=== PATIENT | female | born 1985 | race Hispanic/Latino ===

== ENCOUNTER 2018-06-03 05:53 | Emergency (ER) | payer MEDICAID, OTHER ==
[~2018-06-03 05:53] MED LIST: PREN1TAB89 PO
[2018-06-03 06:35] LABS: BASOPHILS % (AUTO) 0.6 % (0.0-5.0); EOSINOPHILS % (AUTO) 0.9 % (0.0-8.0); HEMATOCRIT 40.2 % (36-48); LYMPHOCYTES % (AUTO) 16.8 % (21.0-51.0); MEAN CORPUSCULAR HEMOGLOBIN 29.5 pg (27.0-33.0); MEAN CORPUSCULAR HGB CONC 33.9 g/dL (32.0-36.0); MEAN CORPUSCULAR VOLUME 87.2 fL (79-99); MONOCYTES % (AUTO) 6.8 % (3.0-13.0); NEUTROPHILS % (AUTO) 74.9 % (40.0-77.0); NUCLEATED RED BLOOD CELLS 0.1 % (0.0-0.19); PLATELET COUNT (AUTO) 391 K/uL (130-400); RED BLOOD CELL COUNT(AUTO) 4.61 MIL/uL (4.00-5.50); RED CELL DISTRIBUTION WIDTH 13.6 % (11.0-15.5); WHITE BLOOD COUNT (AUTO) 11.1 K/uL (4.8-10.8)
[2018-06-03] MEDS ORDERED: ACETAMINOPHEN EXTRA STRENGTH 500 MG TABLET ONE (06:37)
[2018-06-03] MEDS ORDERED: ONDANSETRON HCL 4 MG/2 ML VIAL ONE (06:37)
[2018-06-03 06:39] LABS: CREATININE 0.8 mg/dL (0.5-1.5); POTASSIUM 3.8 mmol/L (3.5-5.1)
[2018-06-03 06:48] LABS: APPEARANCE,URINE Clear (CLEAR); BILIRUBIN,URINE Negative (NEGATIVE); COLOR,URINE Yellow (YELLOW); GLUCOSE, URINE (UA) Negative (NEGATIVE); KETONES,URINE Trace mg/dL (NEGATIVE); LEUKOCYTE ESTERASE ,URINE Small (NEGATIVE); NITRATE,URINE Positive (NEGATIVE); OCCULT BLOOD,URINE Nonhemolyzed Trace (NEGATIVE); PROTEIN,URINE Negative (NEGATIVE)
[2018-06-03 06:54] LABS: ALBUMIN 3.9 g/dL (3.5-5.0); BILIRUBIN,TOTAL 0.4 mg/dL (0.2-1.0); THYROID STIMULATING HORMONE 4.8 uIU/mL (0.36-3.74); TOTAL PROTEIN, SERUM 7.9 g/dL (6.0-8.3)
[2018-06-03 07:08] LABS: HCG,QUAL RESULT NEGATIVE (NEGATIVE)
[2018-06-03] MEDS ORDERED: ORPHENADRINE CITRATE 30 MG/ML ML ONE (07:17)
[2018-06-03 07:32] LABS: BACTERIA,URINE Moderate /HPF (None Seen); CALCIUM OXALATE CRYSTALS,UR Moderate /LPF (None Seen); RBC,URINE 0-1 /HPF (0-1)
== END 2018-06-03 08:32 | disposition home or self-care (01) ==
LOC: EDH 05:53
DX: G43.009 Migraine without aura, not intractable, without status migrainosus (principal); R94.6 Abnormal results of thyroid function studies
CPT/HCPCS: 36415; 80053; 81001; 81025; 84443; 85025; 87077; 87088; 87186; 96374; 96375; 99283; J2360; J2405

== ENCOUNTER 2024-06-22 16:54 | Emergency (ER) | payer BC, OTHER ==
[~2024-06-22] VITALS: Ht 162.6 cm; Wt 104.3 kg
[2024-06-22 19:09] LABS: RAPID GROUP A STREP negative (NEGATIVE)
[2024-06-22 19:19] LABS: COVID19 (SARS ANTIGEN RAPID) PRESUMPTIVE NEGATIVE (NEGATIVE)
[2024-06-22 19:25] LABS: INFLUENZA TYPE A Negative For Type A (NEGATIVE); INFLUENZA TYPE B Negative For Type B (NEGATIVE)
[2024-06-22] MEDS: acetaMINOPHEN 500 MG TABLET PO ONE (19:45)
--- NOTE | 2024-06-22 19:47 | ERN ---
ED Note History of Present Illness Stated Complaint: FLU LIKE SYMPTOMS,RASH ALL OVER BODY Chief Complaint: Multiple Complaints Time Seen by MD: 17:19 Time Seen by Midlevel: 17:19 Dictation: The patient is a 38-year-old female with no past medical history who presents to the emergency department with multiple complaints. Patient reports a rash three days ago that was itching. Took Benadryl and since rash resolved. Reports body aches, fevers. Denies any nausea, vomiting, diarrhea, abdominal pain, urinary discomfort. Allergies: Coded Allergies: No Known Drug Allergies (Verified Allergy, 07/09/12) Home Meds Reported Medications Vit W-Ca,Fe,FA(<1 mg) ( Vitamins) 1 Each Tablet, 1 EACH PO D AILYDINNER, TAB 03/18/17 Past Medical History Past Medical History: No Pertinent History Surgical History: None LMP: Jun 12, 2024 RN Note Reviewed/Agreed w/PFSH: Yes Review of System Dictation Constitutional: Negative for ,chills, and weight loss is a for fever Eyes: Negative for injury, pain,redness, and discharge ENT: Negative for injury,pain or swelling Cardiovascular: Negative for chest pain, palpitations, and edema Respiratory: Negative for shortness of breath, cough, and wheezing, Abdomen/GI: Negative for abdominal pain, nausea, vomiting, diarrhea, and constipation Back: Negative for injury and pain : Negative for injury, bleeding and discharge MS/Extremity: Negative for injury and deformity Skin: Negative for rash, and discoloration Neuro: Negative for headache, weakness, numbness, tingling, and seizure positive for body aches Psych: Negative for suicide ideation, homicidal ideation, and hallucinations Initial Vital Sign VS Vital Signs Date Time Temp Pulse Resp B/P (MAP) Pulse Ox O2 Delivery O2 Flow Rate FiO2 06/22/24 17:22 98.1 81 16 135/75 98 Room Air 0 06/22/24 18:40 21 Physical Exam Dictation Vital Signs reviewed General Appearance: Alert, oriented x 3, no acute distress, well developed, nourished. Head and Face: non-traumatic. Eyes: PERRL, pink conjunctivas, eyelid no trauma, anterior chamber with arcus senilis. Ears: Pinnas intact and no signs of trauma or erythema ear canals clear and no discharge TM no erythema Nose: No discharge, no bleeding. Oropharynx: Mouth normal, tongue pink. pharynx clear,no erythema, tonsils no exudates, no abscesses noted, mucous membrane moist Neck: Supple, non-tender, no thyromegaly, no masses, no JVD, no bruits Breast:Deferred Chest:No tenderness, no crepitus, no paradoxical movement, no retractions Lungs:Clear, well-ventilated, symmetric, no rales, no wheezing, no rhonchi, no stridor, good breath sounds bilaterally Heart: Regular rate, regular rhythm, no murmur, no gallops Vascular: no peripheral edema, Abdomen: Soft, positive bowel sounds, nondistended, no guarding, nontender, no rebound, no masses no hepatomegaly, no splenomegaly, no Troncoso's sign, no hernias. Rectal: Deferred Genital: Deferred Neurological: Normal speech, motor function intact, sensory function intact Musculoskeletal: Neck nontender, full range of motion, back nontender, full range of motion, Extremities: nontender, full range of motion Skin: Color pink, dry, no turgor, no rash, no lacerations, no abrasions, no contusions. Lymphatic: Deferred Results (Laboratory/Radiology) Laboratory/Radiology Laboratory Tests Test 06/22/24 18:35 Influenza Type A Antigen Negative For Type A Influenza Type B Antigen Negative For Type B SARS-CoV-2 Antigen (Rapid) PRESUMPTIVE NEGATIVE Group A Streptococcus Rapid negative (NEGATIVE) Labs Reviewed?: Yes ED Course ED Course Orders Procedure Category Date Status Time Covid19 (Sars Antigen LAB 06/22/24 Complete Rapid) 18:28 Influenza Type A & B, LAB 06/22/24 Complete Rapid 18:28 Rapid (Group A Strep) LAB 06/22/24 Complete 18:28 Acetaminophen 500mg PHA 06/22/24 Complete Tab (Tylenol 500mg T 18:30 Current Medications Medications (Trade) Dose Ordered Sig/Edy Route PRN Reason Start Time Stop Time Status Last Admin Dose Admin Acetaminophen (TYLenol 500MG TAB) 1,000 mg ONCE ONCE PO 06/22/24 18:30 06/22/24 18:31 DC 06/22/24 19:45 Vital Signs Date Time Temp Pulse Resp B/P (MAP) Pulse Ox O2 Delivery O2 Flow Rate FiO2 06/22/24 18:40 98.2 80 16 130/70 98 Room Air* 0 21 06/22/24 17:22 98.1 81 16 135/75 98 Room Air 0 Medical Decision Making MDM The patient is a 38-year-old female with no past medical history who presents to the emergency department with multiple complaints. Patient reports a rash three days ago that was itching. Took Benadryl and since rash resolved. Reports body aches, fevers. Denies any nausea, vomiting, diarrhea, abdominal pain, urinary discomfort. Serology negative for flu, strep. Patient with no more rash. Nontoxic appearance. Nonfebrile in ER. Patients will be discharged to follow up with PCP. Differential diagnosis: Otitis media, viral illness, upper respiratory infection Need for hospitalization: Patient does not meet criteria for hospitalization. There are no social concerns with this patient. DX & DISP Disposition: Discharge Departure Impression: Primary Impression: Viral illness Additional Impression: Fever Condition: Stable Additional Instructions: FOLLOW-UP WITH PRIMARY CARE PROVIDER IN 1 TO 2 DAYS. TAKE MEDICATIONS DIRECTED HERE IN THE EMERGENCY ROOM. OKAY TO CONTINUE HOME MEDICATIONS UNLESS OTHERWISE DISCUSSED DURING YOUR VISIT IN THE EMERGENCY ROOM TODAY. RETURN TO YOUR NEAREST EMERGENCY ROOM IF SYMPTOMS WORSEN OR IF THERE IS NO IMPROVEMENT. CALL 911 IF YOU NEED IMMEDIATE ASSISTANCE. TAKE TYLENOL OR MOTRIN [id number] NEEDED AND IF NO CONTRAINDICATIONS ARE PRESENT. INCREASE ORAL HYDRATION. A WOUND CULTURE OR URINE CULTURE WAS ORDERED HERE IN THE EMERGENCY ROOM DEPARTMENT PLEASE FOLLOW-UP WITH PRIMARY CARE PROVIDER AND ADVISE THEM TO GET REPEAT PORTS FROM OUR FACILITY. IF YOU HAD ANY WALLY WRAP/SPLINTS THAT WERE APPLIED HERE, PLEASE DO NOT REMOVE THEM UNTIL YOU SEE YOUR PRIMARY CARE OR SPECIALTY. Referrals: LYNDON ADHIKARI MD (PCP) Time of Disposition: 19:51 I have reviewed the case, and I agree with, Diagnosis and Plan RAD[facility] WHITTEN [facility] Jun 22, 2024 19:47
[2024-06-22 20:00] VITALS: BP 128/68; PULSE 84; RESP 16; TEMP 98.1; O2SAT 98
[2024-06-22 20:05] VITALS: TEMP 97.6
== END 2024-06-22 20:05 | disposition home or self-care (01) ==
LOC: EDH 16:54
DX: B34.9 Viral infection, unspecified (principal); Z20.822 Contact with and (suspected) exposure to COVID-19; Z79.899 Other long term (current) drug therapy
CPT/HCPCS: 87426; 87804; 87880; 99283

== ENCOUNTER 2024-06-27 03:16 | Emergency (ER) | payer BC ==
[~2024-06-27] VITALS: Ht 160 cm; Wt 109.3 kg
--- NOTE | 2024-06-27 03:39 | ERN ---
General Chief Complaint: Upper Extremity Pain/Injury Stated Complaint: C/O NUMBNESS WITH PAIN TO RT ARM Time Seen by MD: 03:17 Source: patient History of Present Illness Initial Comments PATIENT IS A 38-YEAR-OLD FEMALE COMING IN TO BE EVALUATED FOR RIGHT UPPER EXTREMITY NUMBNESS AND TINGLING TO THE FINGERS WRIST. PATIENT STATES THAT THESE SYMPTOMS BEGAN EARLIER TODAY. Allergies: Coded Allergies: No Known Drug Allergies (Verified Allergy, 07/09/12) Home Meds Reported Medications Vit W-Ca,Fe,FA(<1 mg) ( Vitamins) 1 Each Tablet, 1 EACH PO DAILYDINNER, TAB 03/18/17 Past Medical History Past Medical History: No Pertinent History Past Surgical History: Female( History) LMP: Jun 17, 2024 ROS Dictation CONSTITUTIONAL: NO CHILLS, NO FEVER, NO WEAKNESS, NO DIAPHORESIS, NO MALAISE. HEAD/FACE: NO SIGNS OF TRAUMA. EENT: NO EYE PAIN, NO BLURRED VISION, NO TEARING, NO DOUBLE VISION, NO EAR PAIN, NO EAR DISCHARGE, NO NOSE PAIN, NO NASAL CONGESTION, NO THROAT PAIN, NO THROAT SWELLING, NO MOUTH PAIN. RESPIRATORY: NO COUGH, NO ORTHOPNEA, NO SOB, NO STRIDOR, NO WHEEZING. CARDIOVASCULAR: NO CHEST PAIN, NO EDEMA, NO PALPITATIONS, NO SYNCOPE. GASTROINTESTINAL/ABDOMINAL: NO ABDOMINAL PAIN, NO CONSTIPATION, NO DIARRHEA, NO NAUSEA, NO VOMITING. GENITOURINARY: NO ABNORMAL DISCHARGE, NO DYSURIA, NO FREQUENT URINATION, NO HEMATURIA. NO COMPLAINTS OF PAIN IN THE GENITALS. MUSCULOSKELETAL: NO BACK PAIN, NO GOUT, NO JOINT PAIN, NO JOINT SWELLING, NO MUSCLE PAIN, NO MUSCLE STIFFNESS, NO NECK PAIN. INTEGUMENTARY: NO CHANGE IN COLOR, NO CHANGE IN HAIR/NAILS, NO DRYNESS, NO LESION, NO LUMPS, NO RASH. NEUROLOGICAL/PSYCH: NO ANXIETY, NOT DEPRESSED, NO EMOTIONAL PROBLEM, NO HEADACHE, NUMBNESS, NO PRE-EXISTING DEFICIT, NO HISTORY OF SEIZURES, NO TREMORS, NO WEAKNESS. HEMATOLOGIC/LYMPHATIC: NOT ANEMIC, NO HISTORY OF BLOOD CLOTS, NO APPARENT BLEEDING, NO BRUISING, GLANDS NOT SWOLLEN. ALL SYSTEMS NEGATIVE, EXCEPT NOTED. Physical Exam Physical Exam Dictation VITAL SIGNS: REVIEWED. GENERAL APPEARANCE: ALERT, ORIENTED X3, NO ACUTE DISTRESS, OBESE. HEAD AND FACE: NON-TRAUMATIC. EYES: PERRL, PINK CONJUNCTIVAS, EYELID NO TRAUMA, ANTERIOR CHAMBER CLEAR. EARS: PINNAS INTACT AND NO SIGNS OF TRAUMA OR ERYTHEMA. EAR CANALS CLEAR AND NO DISCHARGE. TMS NO ERYTHEMA. NOSE: NO DISCHARGE, NO BLEEDING. OROPHARYNX: MOUTH NORMAL, TEETH NO CARIES, TONGUE PINK. PHARYNX CLEAR, NO ERYTHEMA. TONSILS NO EXUDATES, NO ABSCESSES NOTED. MUCOUS MEMBRANE MOIST. NECK: SUPPLE, NON-TENDER, NO THYROMEGALY, NO MASSES, NO JVD, NO BRUITS. BREAST: DEFERRED. CHEST: NO TENDERNESS, NO CREPITUS, NO PARADOXICAL MOVEMENT, NO RETRACTIONS. LUNGS: CLEAR, WELL-VENTILATED, SYMMETRIC, NO RALES, NO WHEEZING, NO RHONCHI, NO STRIDOR, GOOD BREATH SOUNDS BILATERALLY. HEART: REGULAR RATE, REGULAR RHYTHM, NO MURMUR, NO GALLOPS. VASCULAR: NO PERIPHERAL EDEMA. ABDOMEN: SOFT, POSITIVE BOWEL SOUNDS, NONDISTENDED, NO GUARDING, NONTENDER, NO REBOUND, NO MASSES NO HEPATOMEGALY, NO SPLENOMEGALY, NO MARQUEZ'S SIGN, NO HERNIAS. RECTAL: DEFERRED. GENITAL: DEFERRED. NEUROLOGICAL: NORMAL SPEECH, GROSS MOTOR FUNCTION INTACT, GROSS SENSORY FUNCTION INTACT. MUSCULOSKELETAL: NECK NONTENDER, FULL RANGE OF MOTION, BACK NONTENDER, FULL RANGE OF MOTION. EXTREMITIES: NONTENDER, FULL RANGE OF MOTION. RIGHT ULNAR NERVES TENDERNESS TO PALPATION, PRESSING ON THE NURSE STIMULATES THE NUMBNESS AND TINGLING. SKIN: COLOR PINK, DRY, NO TURGOR, NO RASH, NO LACERATIONS, NO ABRASIONS, NO C ONTUSIONS. LYMPHATICS: DEFERRED. Results Laboratory and Microbiology Lab and Micro Result Laboratory Tests Test 06/27/24 03:33 Urine HCG, Qualitative NEGATIVE (NEGATIVE) Labs Reviewed?: Yes MDM MDM: DIFFERENTIAL DIAGNOSIS: ULNAR NERVE ENTRAPMENT, NUMBNESS AND TINGLING, CARPAL TUNNEL SYNDROME, PATIENT IS A 38-YEAR-OLD FEMALE COMING IN TO BE EVALUATED FOR RIGHT UPPER EXTREMITY NUMBNESS AND TINGLING. ON PHYSICAL EXAM ULNAR NERVE FOSSA TENDERNESS TO PALPATION AND REPEATS THE SENSATION WANTS THE ULNAR NERVE IS TAPPED. CONSIS TENT WITH A NERVE ENTRAPMENT. PATIENT WILL BE DISCHARGED IN STABLE CONDITION WITH A DIAGNOSIS OF ULNAR NERVE ENTRAPMENT I ADVISED HER APPROPRIATE FOLLOW UP WITH PCP ANTI-INFLAMMATORIES WILL BE PROVIDED. ED Course Orders Procedure Category [facility] In Process 03:25 ,Urine Test LAB 06/27/24 Complete 03:25 Orphenadrine Citrate PHA 06/27/24 Complete (Norflex) 03:30 Ketorolac PHA 06/27/24 Complete Tromethamine 30mg/Ml 03:30 Current Medications Medications (Trade) Dose Ordered Sig/Edy Route PRN Reason Start Time Stop Time Status Last Admin Dose Admin Ketorolac Tromethamine (toRADol) 30 mg ONCE ONCE IM 06/27/24 03:30 06/27/24 03:31 DC Orphenadrine Citrate (Norflex) 60 mg ONCE ONCE IM 06/27/24 03:30 06/27/24 03:31 DC Vital Signs Date Time Temp Pulse Resp B/P (MAP) Pulse Ox O2 Delivery O2 Flow Rate FiO2 06/27/24 03:17 97.3 65 20 140/87 99 Room Air DX & DISP Disposition: Discharge Departure Impression: Primary Impression: Ulnar nerve entrapment at elbow Condition: Stable Scripts Ibuprofen (Ibuprofen 800 mg Tab) 800 Mg Tab 1 TAB PO TID for pain for 5 Days, #15 TAB 0 Refills Prov: VANESSA GARCIA MD 06/27/24 Additional Instructions: FOLLOW-UP WITH PRIMARY CARE PROVIDER IN 1 TO 2 DAYS. TAKE MEDICATIONS DIRECTED HERE IN THE EMERGENCY ROOM. OKAY TO CONTINUE HOME MEDICATIONS UNLESS OTHERWISE DISCUSSED DURING YOUR VISIT IN THE EMERGENCY ROOM TODAY. RETURN TO YOUR NEAREST EMERGENCY ROOM IF SYMPTOMS WORSEN OR IF THERE IS NO IMPROVEMENT. CALL 911 IF YOU NEED IMMEDIATE ASSISTANCE. TAKE TYLENOL [id number] NEEDED AND IF NO CONTRAINDICATIONS ARE PRESENT. INCREASE ORAL HYDRATION. A WOUND CULTURE OR URINE CULTURE WAS ORDERED HERE IN THE EMERGENCY ROOM DEPARTMENT PLEASE FOLLOW-UP WITH PRIMARY CARE PROVIDER AND ADVISE THEM TO GET REPEAT PORTS FROM OUR FACILITY. IF YOU HAD ANY WALLY WRAP/SPLINTS THAT WERE APPLIED HERE, PLEASE DO NOT REMOVE THEM UNTIL YOU SEE YOUR PRIMARY CARE OR SPECIALTY. REFERRALS: Referrals: LYNDON ADHIKARI MD (PCP) Time of Disposition: 03:55 VANESSA GARCIA MD Jun 27, 2024 03:39
[2024-06-27] MEDS ORDERED: IBUP-2077 PO (03:56)
[2024-06-27] MEDS: ORPHENADRINE 60MG/2ML IM ONE (04:01)
[2024-06-27] MEDS: ketOROlac 30MG VIAL (30MG/ML) IM ONE (04:01)
[2024-06-27 04:15] VITALS: BP 132/86; PULSE 64; RESP 16; TEMP 97.8; O2SAT 99
== END 2024-06-27 04:24 | disposition home or self-care (01) ==
LOC: EDH 03:16
DX: G56.21 Lesion of ulnar nerve, right upper limb (principal); Z98.890 Other specified postprocedural states
CPT/HCPCS: 99284; 81025; 96372 ×2; J1885; J2360